=== PATIENT | male | born 1985 | race Caucasian/White ===

== ENCOUNTER 2025-01-25 18:18 | Emergency (ER) | payer OTHER ==
[2025-01-25 18:41] VITALS: BP 141/97; PULSE 102; RESP 18; TEMP 98.4; BMI 42.2
== END 2025-01-25 19:08 | disposition home or self-care (01) ==
LOC: FER 18:18
DX: R22.0 Localized swelling, mass and lump, head (principal); R51.9 Headache, unspecified; W50.3XXA Accidental bite by another person, initial encounter
CPT/HCPCS: 99283-25